=== PATIENT | male | born 1995 | race Caucasian/White ===

== ENCOUNTER 2020-07-27 13:31 | Emergency (ER) | payer OTHER ==
--- NOTE | 2020-07-27 14:58 | ED Physician Documentation ---
History of Present Illness - Stated complaint Stated Complaint: LEFT FINGER LAC - Chief complaint Chief Complaint: Laceration - History obtained from History obtained from: Patient - History of Present Illness Timing: Today Pain level max: 3 Pain level now: 3 - Additonal information Additional information: Patient is a 25-year-old male who presents to the emergency department complaining of left finger laceration, index finger. Occurred while working on his car at home. Nothing makes it better or worse. Tetanus is up-to-date. No numbness or tingling. Review of Systems Constitutional: denies: Fever, Chills GI: denies: Vomiting Skin: denies: Rash Musculoskeletal: denies: Neck pain, Back pain Neurologic: denies: Headache PD PAST MEDICAL HISTORY - Past Medical History Past Medical History: No - Past Surgical History Past Surgical History: No - Allergies Allergies/Adverse Reactions: Allergies Allergy/AdvReac Type Severity Reaction Status Date / Time No Known Drug Allergies Allergy Verified 07/27/20 13:45 - Social History Does the pt smoke?: No Smoking Status: Never smoker Does the pt drink ETOH?: No Does the pt have substance abuse?: No - Immunizations Immunizations are current?: Yes PD ED PE NORMAL - Vitals Vital signs reviewed: Yes - General General: Alert and oriented X 3, No acute distress - HEENT HEENT: Moist mucous membranes - Neck Neck: Supple, no meningeal sign - Derm Derm: Warm and dry - Extremities Extremities: Other (Left index finger - 1cm subcutaneous laceration, middle phalanx, lateral aspect. NVI. no tendon, nerve or vascular injury.) - Neuro Neuro: Alert and oriented X 3 Results - Vitals Vitals: Vital Signs - 24 hr 07/27/20 13:39 Temperature 37.2 C Heart Rate 72 Respiratory 14 Rate Blood Pressure 131/72 H O2 Saturation 99 Oxygen O2 Source Room air Procedures - Laceration (location) Left index finger Length in cm: 1 Wound type: Linear, Superficial, Into subcut fat, Clean Neurovascular status: Sensory intact, Motor intact, Vascular intact Tendon involvement: Tendon intact (Tested against resistance) Wound Preparation: Irrigated copiously NS, Wound explored, To the base Skin layer closure: Dermabond, Other (T ring closure system) Other: Patient tolerated well, No complications, Neurovascular intact, Dressing applied, Tetanus UTD Complexity: Simple PD MEDICAL DECISION MAKING - ED course Complexity details: considered differential, d/w patient ED course: Laceration repaired with the T ring closure system. Tolerated well. Tetanus up-to-date. Neurovascular intact. Warnings of infection and instructions on wound care given at bedside. Also counseled on how to minimize scarring. Patient counseled regarding signs and symptoms for which I believe and urgent re-evaluation would be necessary. Patient with good understanding of and agreement to plan and is comfortable going home at this time This document was made in part using voice recognition software. While efforts are made to proofread this document, sound alike and grammatical errors may occur. Departure - Departure Disposition: Home, Self Care Clinical Impression: Finger laceration Qualifiers: Encounter type: initial encounter Finger: index finger Damage to nail status: without damage Foreign body presence: without foreign body Laterality: left Qualified Code(s): S61.211A - Laceration without foreign body of left index finger without damage to nail, initial encounter Condition: Good Instructions: ED Laceration Hand Follow-Up: your,doctor in 1 week for wound check [Other] Comments: Keep the wound clean. Return if you worsen. The device should fall off on its own after a week or so. Return if you notice redness, swelling or drainage from the wound
[2020-07-27 15:03] VITALS: BP 124/77
== END 2020-07-27 15:11 | disposition home or self-care (01) ==
LOC: ED 13:31
DX: S61.211A Laceration without foreign body of left index finger without damage to nail, initial encounter (principal); W26.0XXA Contact with knife, initial encounter; Y93.89 Activity, other specified; Y92.009 Unspecified place in unspecified non-institutional (private) residence as the place of occurrence of the external cause
CPT/HCPCS: 12001; 99281; 99284